=== PATIENT | female | born 1980 | race Caucasian/White ===

== ENCOUNTER 2023-10-28 15:21 | Emergency (ER) | payer SELFPAY ==
[2023-10-28] VITALS (11 sets, daily range): BP systolic 126–140; BP diastolic 79–95; PULSE 53–118; RESP 10–28; TEMP 36.7; O2SAT 97–100; BMI 24.3
--- NOTE | 2023-10-28 15:33 | ED.GENADULT ---
HPI - General Adult General Chief complaint: Abdominal Pain Stated complaint: pancreatitis Time Seen by Provider: 10/28/23 15:30 History of Present Illness HPI narrative: Otherwise healthy 43-year-old woman who presents with severe 10/10 upper abdominal pain. Symptoms apparently started on the . Seemed to be related to eating. She was seen by a provider at [facility] on the . Urine test was negative at the time. CT scan of the abdomen was ordered and patient went to [facility] imaging results are not available at this time. Symptoms have gotten significantly worse over the course of the day today she arrives literally quivering with pain trying to be cooperative. Pain is described as stabbing and burning after she eats, dramatically worse today Related Data Previous Rx's Medication Instructions Recorded omeprazole 40 mg capsule,delayed 40 mg PO BID #60 caps 10/28/23 release Allergies Allergy/AdvReac Type Severity Reaction Status Date / Time No Known Drug Allergies Allergy Verified 10/28/23 15:37 Review of Systems Review of Systems Narrative: Pertinent positive and negative findings as per HPI Patient History Social History Smoking Status: Never smoker Exam Initial Vital Signs Initial Vital Signs: Vital Signs Temperature 98.1 F 10/28/23 15:32 Pulse Rate 104 H 10/28/23 15:32 Respiratory Rate 24 10/28/23 15:32 Blood Pressure 136/86 10/28/23 15:32 Pulse Oximetry 100 10/28/23 15:32 Oxygen Delivery Method Room Air 10/28/23 15:32 General: Healthy appearing, severe distress with abdominal pain unable to lay still HEENT: Moist mucous membranes, normal sclera with reactive pupils, Respiratory: Lungs are clear to auscultation, no wheezing no rales no rhonchi. Full and symmetrical air movement Cardiac: Regular rate and rhythm no murmurs no bruits Abdomen: Tender in the left upper quadrant without rebound or guarding no flank pain Skin: Warm and dry, no rashes Neurologic: Grossly neurologically intact with no obvious asymmetries or abnormalities Extremities: No trauma, well perfused Psych: Cooperative, appropriate insight and affect Course Orders Ordered: ED Orders 10/28/23 15:28 Complete Blood Count AUTO DIFF Stat Comprehensive Metabolic Panel Stat Lactate (Lactic Acid) Stat Lipase Stat 10/28/23 15:30 Urinalysis and Microscopic Stat 10/28/23 16:28 XR acute abdomen series Stat Discontinued Medications Al Hydrox/Mg Hydrox/Simethicone 20 ml/ Lidocaine HCl 15 ml 0 ml PO NOW ONE Stop: 10/28/23 16:28 Last Admin: 10/28/23 16:33 Dose: 35 ml Documented By: MARK Hydromorphone HCl (Hydromorphone 1 Mg Inj) 1 mg IV NOW ONE Stop: 10/28/23 15:31 Last Admin: 10/28/23 15:37 Dose: 1 mg Documented By: Sodium Chloride (Normal Saline 0.9%) 1,000 mls @ 1,000 mls/hr IV BOLUS ONE Stop: 10/28/23 16:29 Last Infusion: 10/28/23 16:02 Dose: Infused Documented By: Admin: 10/28/23 15:37 Dose: 1,000 mls/hr Documented By: Ondansetron HCl (Ondansetron 4 Mg/2 Ml Inj) 4 mg IV NOW ONE Stop: 10/28/23 15:31 Last Admin: 10/28/23 15:37 Dose: 4 mg Documented By: Pantoprazole Sodium (Pantoprazole 40 Mg Vial) 80 mg IV NOW ONE Stop: 10/28/23 16:28 Last Admin: 10/28/23 16:33 Dose: 80 mg Documented By: MARK Vital Signs Vital signs: Vital Signs - 8 hr 10/28/23 15:32 Temperature 98.1 F Pulse Rate 104 H Respiratory Rate 24 Blood Pressure 136/86 Pulse Oximetry 100 Oxygen Delivery Method Room Air Medical Decision Making Lab Data 10/28/23 15:28 10/28/23 15:28 Labs: Lab Results 10/28/23 10/28/23 Range/Units 15:28 17:22 WBC 9.4 (4.5-11.0) X10^3/uL RBC 5.04 (4.0-5.2) X10^6/uL Hgb 16.2 H (12.0-16.0) g/dL Hct 46.0 (36-46) % MCV 91.3 (80-100) fL MCH 32.3 (26-34) PG MCHC 35.3 (30-36) % RDW 12.3 (11.6-14.8) % Plt Count 291 (150-400) X10^3/uL Neut % (Auto) 57.9 (50-75) % Lymph % (Auto) 34.9 (25-40) % [place] % (Auto) 6.4 (3-14) % Eos % (Auto) 0.4 L (2-4) % Baso % (Auto) 0.4 (0-2) % Neut # (Auto) 5500 (0170-3957) /uL Lymph # (Auto) 3300 (5309-5719) /uL [place] # (Auto) 600 (0-900) /uL Eos # (Auto) 0 (0-450) /uL Baso # (Auto) 0 (0-100) /uL Sodium 134 L (137-145) mmol/L Potassium 3.6 (3.4-5.1) mmol/L Chloride 103 (98-107) mmol/L Carbon Dioxide 18 L (22-32) mmol/L BUN 10 (7-17) mg/dL Creatinine 0.78 (0.52-1.04) mg/dL Estimated GFR > 60 (>60) mL/min BUN/Creatinine Ratio 12.8 (6-22) Glucose 108 H (70-100) mg/dL Lactate 3.2 H 1.3 (0.7-2.1) mmol/L Calcium 9.8 (8.4-10.2) mg/dL Total Bilirubin 1.1 (0.2-1.3) mg/dL AST 28 (14-36) IU/L ALT 22 (<35) IU/L Alkaline Phosphatase 78 (38-126) U/L Total Protein 8.4 H (6.3-8.2) g/dL Albumin 4.8 (3.5-5.0) g/dL Globulin 3.6 (1.7-4.1) g/dL Albumin/Globulin Ratio 1.3 (1.0-2.8) Lipase 94 (23-300) U/L MDM Narrative Medical decision making narrative: CC: Abdominal pain Complicating co-morbidities: Seen by her primary care doctor, CT scan was done results are not available Data collected from: patient, Social determinants of health that may influence the patients condition: Patient does not have insurance Medical records reviewed: [facility] records are reviewed. She had a negative urine test. No blood work was done with her visit on Sunday and CT scan was done at [facility] with results not yet imported into [facility] medical records Differential considered: Gastric ulcer with perforation, acute cholecystitis, bowel obstruction, volvulus Exam documented above, pertinent findings include: Significant pain on arrival. Pain medicine is given and more thorough exam is able to be undertaken. She has tenderness without rebound or guarding in the left upper quadrant some minor tenderness in the epigastrium. Remainder of exam is benign Lab Test results independently reviewed as above. Pertinent findings: CBC is unremarkable with no evidence of anemia Chemistries are reassuring. Lactate initially is elevated at 3.2 and repeat is down to 1.3 after hydration Lipase is normal at 94 Imaging studies independently reviewed: Knowing that we do not have access to the CT scan of the abdomen and pelvis done 48 hours ago, shared decision-making we opted to do an acute abdomen series rather than repeating CT scanning Acute abdomen series does not show significant cardiopulmonary pathology. No free air is appreciated no evidence of bowel obstruction. She has quite a bit of gas in the left upper quadrant and quite a bit of stool in the cecum and the rectum Treatments: Fluid, hydromorphone IV, pantoprazole Discussion: 43-year-old woman with severe abdominal pain uncertain etiology progressively getting worse. Workup today suggests no evidence for surgical intervention and no acute infection. She is not based on urine test done on the at [facility]. I suspect that she has at minimum gastritis possibly developing a gastric ulcer that is causing the burning pain in the upper abdomen. With that degree of significant pain and diet restrictions she likely has a moderate amount of ileus which has caused constipation and gas accumulation which is exacerbating overall pain. All of these findings including the real-time x-rays are reviewed in detail with the patient and her . Reassurance is given. We will recommend omeprazole 40 mg b.i.d. for 2 weeks then 40 mg daily for a month. Also recommended MiraLax 1 scoop every hour until she begins to have a bowel movement this evening to help with the constipation and abdominal gas. She will follow up with her primary care physician in 48 hours as scheduled and we will reduce CT scan at that time. She may benefit from gastroenterology referral in the future. Questions are answered and she is safe for discharge Discharge Plan Departure Patient Disposition: Home Clinical Impression: Abdominal pain Qualifiers: Abdominal location: left upper quadrant Qualified Code(s): R10.12 - Left upper quadrant pain Instructions: DI for Gastritis, DI for Abdominal Pain-Adult Activity Restrictions/Additional Instructions: Thank you for coming in today, the amount of pain that you are dealing with looks horrible With your workup today did not find any life-threatening abnormalities. You do not have pancreatitis. It does not appear you have a perforated gastric ulcer or free air in your abdomen. There was no sign of bowel obstruction and no indication for surgical intervention You do not have any evidence of infection and you are not based on urine test done at [facility] 2 days ago I suspect that you are developing at least gastritis with reflux if not even a gastric ulcer. I am going to recommend stomach acid reduce her medication at very high dose for 2 weeks and then decreasing after that. I have given you a prescription for omeprazole 40 mg b.i.d. for 2 weeks then decreasing to 40 mg daily. You can get the same medication [id number] in a 20 mg size pill. Whichever is the least expensive is going to be appropriate I would also recommend getting some MiraLax this evening. The correct dose is however much it takes to began having a bowel movement. Please take 1 cap full or 1 packet full along with a large glass of water or juice every hour until you begin to have bowel movement. I suspect that your stomach irritation has been causing your bowels to slow down due to the pain. You do have quite a bit of stool both the left and the right side of your colon and large amount of air up in the left upper quadrant of your abdomen. If you find that you are getting worse or develop any new symptoms, please feel free to return to the emergency department for further evaluation. Prescriptions: New omeprazole 40 mg capsule,delayed release(DR/EC) 40 mg PO BID Qty: 60 0RF Rx Instructions: 40 mg b.i.d. for 2 weeks then daily Referrals: Miscellaneous,Doctor, [Non-Staff] - Stand Alone Forms: Patient Portal/API
[2023-10-28 15:35] LABS: Add Manual Diff / Slide Review NO; Basophils Absolute Auto 0 /uL (0-100); Basophils Percent Auto 0.4 % (0-2); Eosinophils Absolute Auto 0 /uL (0-450); Eosinophils Percent Auto 0.4 % (2-4); Hemoglobin 16.2 g/dL (12.0-16.0); Lymphocytes Absolute Auto 3300 /uL (1100-4500); Lymphocytes Percent Auto 34.9 % (25-40); Mean Corpuscular HGB Conc 35.3 % (30-36); Mean Corpuscular Hemoglobin 32.3 PG (26-34); Mean Corpuscular Volume 91.3 fL (80-100); Monocytes Absolute Auto 600 /uL (0-900); Monocytes Percent Auto 6.4 % (3-14); Neutrophils Absolute Auto 5500 /uL (1500-7000); Neutrophils Percent Auto 57.9 % (50-75); Platelet Count 291 X10^3/uL (150-400); Red Blood Cell Count 5.04 X10^6/uL (4.0-5.2); Red Cell Distribution Width 12.3 % (11.6-14.8); White Blood Cell Count 9.4 X10^3/uL (4.5-11.0)
[2023-10-28] MEDS: ONDANSETRON 4 MG/2 ML INJ IV (15:37)
[2023-10-28] MEDS: HYDROMORPHONE 1 MG INJ IV (15:37)
[2023-10-28] MEDS: SODIUM CHLORIDE 0.9% 1,000 ML 1000 ML IV (15:37)
[2023-10-28 15:56] LABS: Lactate (Lactic Acid) 3.2 mmol/L (0.7-2.1)
[2023-10-28 15:57] LABS: Alanine Aminotransferase 22 IU/L (<35); Albumin 4.8 g/dL (3.5-5.0); Albumin Globulin Ratio 1.3 (1.0-2.8); Alkaline Phosphatase 78 U/L (38-126); Aspartate Aminotransferase 28 IU/L (14-36); BUN Creatinine Ratio 12.8 (6-22); Bilirubin Total 1.1 mg/dL (0.2-1.3); Blood Urea Nitrogen 10 mg/dL (7-17); Calcium 9.8 mg/dL (8.4-10.2); Carbon Dioxide 18 mmol/L (22-32); Chloride 103 mmol/L (98-107); Estimated Glomerular Filt Rate > 60 mL/min (>60); Globulin 3.6 g/dL (1.7-4.1); Glucose 108 mg/dL (70-100); HEMOLYSIS 21 (0-50); Lipase 94 U/L (23-300); Potassium 3.6 mmol/L (3.4-5.1); Sodium 134 mmol/L (137-145); Total Protein 8.4 g/dL (6.3-8.2)
--- NOTE | 2023-10-28 16:28 | DI.RAD.S_ITS ---
PROCEDURE: XR ACUTE ABDOMEN SERIES INDICATIONS: pain TECHNIQUE: One view chest and two views of the abdomen were acquired. COMPARISON: None. FINDINGS: Surgical changes and devices: None. Chest: Lungs are clear. Heart size is normal. No pleural effusions. No pneumoperitoneum. Abdomen: Bowel gas pattern is normal. No suspicious calcifications. Visualized solid organ contours appear normal. Bones: No suspicious bony lesions. IMPRESSION: No acute abnormality. Moderate colonic stool load. Dictated by: Sya Chang M.D. on 10/28/2023 at 17:29 Approved by: Say Chang M.D. on 10/28/2023 at 17:30
[2023-10-28] MEDS: PANTOPRAZOLE 40 MG VIAL 80 MG IV (16:33)
[2023-10-28] MEDS: MAG HYDROX/ALUMINUM/SIMETH SUS 20 ML, LIDOCAINE VISCOUS 2% 15 ML PO (16:33)
[2023-10-28 17:08] LABS: Reflexed Lactate in 2 Hours Y
[2023-10-28 17:41] LABS: Lactate 2HR (Lactic Acid Rflx) 1.3 mmol/L (0.7-2.1)
== END 2023-10-28 18:40 | disposition home or self-care (01) ==
PROVIDERS: Emergency Provider Emergency Medicine; PCP Obstetrics & Gynecology
DX: R10.12 Left upper quadrant pain (principal)
CPT/HCPCS: 36415; 74022; 80053; 83605; 83690; 85025; 96374; 96375; 99284; J1170; J2405; J2470